=== PATIENT | female | born 1940 | race African-American/Black ===

== ENCOUNTER 2021-02-05 07:49 | Inpatient (IN) | payer MEDICARE, OTHER ==
[~2021-02-05] VITALS: Ht 157.5 cm; Wt 44.9 kg
[~2021-02-05 07:49] MED LIST: ALBU6.7H9 ORI; CARV3.1242 PO; FURO-151 MT; POTA20TA82 MT; SACU1TAB PO
[2021-02-05 08:33] LABS: BASOPHILS % 0.5 % (0.0-2.0); EOSINOPHILS % 3.3 % (0.0-5.0); HEMATOCRIT. 29.4 % (36.0-48.0); HEMOGLOBIN. 10.1 g/dL (12.0-16.0); LYMPHOCYTES % 23.9 % (20.0-50.0); MEAN CORPUSCULAR HEMOGLOBIN 35.5 pg (28.0-32.0); MEAN CORPUSCULAR VOLUME 103.2 fL (81.0-99.0); MEAN PLATELET VOLUME 9.3 fl (7.4-10.4); MONOCYTES % 7.7 % (2.0-8.0); NEUTROPHILS % 64.6 % (40.0-76.0); PLATELET 162 x1000/uL (130-400); RED BLOOD CELL COUNT 2.85 mill/uL (4.2-5.4); RED CELL DISTRIBUTION WIDTH 14.8 % (11.6-14.6)
[2021-02-05 08:40] LABS: CHLORIDE 105 mEq/L (98-107)
[2021-02-05] MEDS ORDERED: ONDANSETRON HCL 4MG/2ML INJ IV PRN (10:45)
[2021-02-05] MEDS ORDERED: ACETAMINOPHEN 325MG TABLET PO PRN (10:45)
[2021-02-05] MEDS ORDERED: CARVEDILOL 6.25 MG TABLET PO NR (10:45)
[2021-02-05] MEDS: FUROSEMIDE 40MG/4ML VIAL IVP SCH ×2 (11:34→17:06)
[2021-02-05 15:51] VITALS: BP 114/49
[2021-02-05 16:00] VITALS: BP 114/68
[2021-02-05 20:00] VITALS: BP 122/77
[2021-02-06] VITALS (7 sets, daily range): BP systolic 102–152; BP diastolic 45–93
[2021-02-06] MEDS: FUROSEMIDE 40MG/4ML VIAL IVP SCH ×2 (06:59→16:42)
[2021-02-06 07:00] LABS: EOSINOPHILS % 4.1 % (0.0-5.0); HEMATOCRIT. 30.6 % (36.0-48.0); HEMOGLOBIN. 10.2 g/dL (12.0-16.0); LYMPHOCYTES % 30.2 % (20.0-50.0); MEAN CORPUSCULAR HEMOGLOBIN 35.4 pg (28.0-32.0); MEAN CORPUSCULAR VOLUME 106.3 fL (81.0-99.0); MONOCYTES % 9.6 % (2.0-8.0); NEUTROPHILS % 55.1 % (40.0-76.0); PLATELET 156 x1000/uL (130-400); RED BLOOD CELL COUNT 2.88 mill/uL (4.2-5.4); RED CELL DISTRIBUTION WIDTH 15.3 % (11.6-14.6)
[2021-02-06] MEDS ORDERED: FURO-151 MT (16:03)
[2021-02-06] MEDS ORDERED: POTA20TA82 MT (16:03)
[2021-02-06] MEDS ORDERED: CARV6.2548 MT (16:03)
[2021-02-06] MEDS ORDERED: CARVEDILOL 6.25 MG TABLET PO SCH (21:00)
== END 2021-02-06 19:23 | disposition home or self-care (01) | DRG 291 ==
LOC: ER 07:49 → 8WST 10:23 → ENRESERV 12:30
PROVIDERS: ADMIT Internal Medicine; ATTEND Internal Medicine
DX: I13.0 Hypertensive heart and chronic kidney disease with heart failure and stage 1 through stage 4 chronic kidney disease, or unspecified chronic kidney disease (principal); I50.23 Acute on chronic systolic (congestive) heart failure; E46 Unspecified protein-calorie malnutrition; Z68.1 Body mass index [BMI] 19.9 or less, adult; D64.9 Anemia, unspecified; E11.22 Type 2 diabetes mellitus with diabetic chronic kidney disease; F17.210 Nicotine dependence, cigarettes, uncomplicated; I27.20 Pulmonary hypertension, unspecified; I42.9 Cardiomyopathy, unspecified; J44.9 Chronic obstructive pulmonary disease, unspecified; N18.2 Chronic kidney disease, stage 2 (mild); E66.01 Morbid (severe) obesity due to excess calories; Z79.899 Other long term (current) drug therapy
CPT/HCPCS: 36415; 71045; 80048; 80053; 83880; 84484; 85025; 93005; 93306; 97162; 99285; J1940

== ENCOUNTER 2021-03-18 04:47 | Inpatient (IN) | payer MEDICARE ==
[~2021-03-18] VITALS: Ht 162.6 cm; Wt 59.9 kg
[~2021-03-18 04:47] MED LIST changes: +CARV6.2548 MT
[2021-03-18 06:09] LABS: CHLORIDE 109 mEq/L (98-107)
[2021-03-18 06:13] LABS: BASOPHILS % 0.5 % (0.0-2.0); EOSINOPHILS % 7.6 % (0.0-5.0); HEMATOCRIT. 28.3 % (36.0-48.0); HEMOGLOBIN. 9.5 g/dL (12.0-16.0); LYMPHOCYTES % 22.1 % (20.0-50.0); MEAN CORPUSCULAR HEMOGLOBIN 35.5 pg (28.0-32.0); MEAN CORPUSCULAR VOLUME 105.6 fL (81.0-99.0); MEAN PLATELET VOLUME 10.4 fl (7.4-10.4); MONOCYTES % 4.7 % (2.0-8.0); NEUTROPHILS % 65.1 % (40.0-76.0); PLATELET 140 x1000/uL (130-400); RED BLOOD CELL COUNT 2.68 mill/uL (4.2-5.4); RED CELL DISTRIBUTION WIDTH 14.1 % (11.6-14.6)
[2021-03-18] MEDS ORDERED: FUROSEMIDE 40MG/4ML VIAL IVP ONE (06:45)
[2021-03-18] MEDS ORDERED: ENALAPRIL 2.5MG/2ML VIAL 2ML IV ONE (07:00)
[2021-03-18] MEDS ORDERED: ENALAPRIL 1.25MG/ML VIAL 1ML IV ONE (07:15)
[2021-03-18] MEDS ORDERED: DOCUSATE SODIUM 100MG CAPSULE PO PRN (07:15)
[2021-03-18] MEDS ORDERED: ONDANSETRON HCL 4MG/2ML INJ IV PRN (07:15)
[2021-03-18] MEDS ORDERED: MAGNESIUM/ALUMINUM HYDROXIDE/SIMETHICONE 30ML UDC PO PRN (07:15)
[2021-03-18] MEDS ORDERED: ENOXAPARIN 40MG/0.4ML SYR SUBCUT SCH (07:15)
[2021-03-18] MEDS ORDERED: GUAIFENESIN 200MG/10ML SUGAR FREE UDC PO PRN (07:15)
[2021-03-18] MEDS ORDERED: CLONIDINE 0.1MG TABLET PO PRN (07:15)
[2021-03-18] MEDS ORDERED: HYDROCODONE/ACETAMINOPHEN 5/325MG TABLET PO PRN (07:15)
[2021-03-18] MEDS ORDERED: ACETAMINOPHEN 325MG TABLET PO PRN (07:15)
[2021-03-18] MEDS: FUROSEMIDE 40MG/4ML VIAL IV SCH (07:30)
[2021-03-18] MEDS: ASPIRIN 81MG EC TABLET PO SCH (08:32)
[2021-03-18] MEDS: ENOXAPARIN 30MG/0.3ML SYR SUBCUT SCH (08:32)
[2021-03-18 10:30] VITALS: BP 127/65
[2021-03-18 12:00] VITALS: BP 128/60
[2021-03-18 16:00] VITALS: BP 102/52
[2021-03-18] MEDS ORDERED: ATOR20TA65 PO (16:29)
[2021-03-18] MEDS ORDERED: DEXTROSE 50% WATER 50ML SYRINGE IV PRN (18:15)
[2021-03-18 20:00] VITALS: BP 124/78
[2021-03-18 20:09] LABS: CREATINE KINASE 67 IU/L (26-192)
[2021-03-18] MEDS: BLOOD SUGAR DIAGNOSTIC STRIP TEST SCH (20:44)
[2021-03-18] MEDS: INSULIN LISPRO 100 UNITS/ML SUBCUT SCH (20:44)
[2021-03-18] MEDS: CARVEDILOL 6.25 MG TABLET PO SCH (20:46)
[2021-03-18] MEDS: ZOLPIDEM TARTRATE 5MG TABLET PO PRN (21:11)
[2021-03-19] VITALS: BP 106/53
[2021-03-19 00:14] LABS: CREATINE KINASE 68 IU/L (26-192)
[2021-03-19 04:00] VITALS: BP 112/61
[2021-03-19] MEDS: BLOOD SUGAR DIAGNOSTIC STRIP TEST SCH ×4 (07:10→21:00)
[2021-03-19 07:14] LABS: BASOPHILS % 0.7 % (0.0-2.0); EOSINOPHILS % 8.6 % (0.0-5.0); HEMATOCRIT. 26.6 % (36.0-48.0); LYMPHOCYTES % 23.4 % (20.0-50.0); MEAN CORPUSCULAR HEMOGLOBIN 35.7 pg (28.0-32.0); MEAN CORPUSCULAR VOLUME 105.6 fL (81.0-99.0); MEAN PLATELET VOLUME 10.6 fl (7.4-10.4); MONOCYTES % 7.7 % (2.0-8.0); NEUTROPHILS % 59.6 % (40.0-76.0); PLATELET 128 x1000/uL (130-400); RED BLOOD CELL COUNT 2.52 mill/uL (4.2-5.4); RED CELL DISTRIBUTION WIDTH 13.9 % (11.6-14.6)
[2021-03-19 07:20] LABS: CHLORIDE 113 mEq/L (98-107)
[2021-03-19] MEDS: INSULIN LISPRO 100 UNITS/ML SUBCUT SCH ×4 (07:28→21:00)
[2021-03-19 07:30] LABS: LDL CHOLESTEROL 52 mg/dL (5-100)
[2021-03-19 07:31] LABS: HDL CHOLESTEROL 60 mg/dL (40-59)
[2021-03-19 08:00] VITALS: BP 142/71
[2021-03-19] MEDS: ASPIRIN 81MG EC TABLET PO SCH (09:09)
[2021-03-19] MEDS: FUROSEMIDE 40MG/4ML VIAL IV SCH (09:10)
[2021-03-19] MEDS: CARVEDILOL 6.25 MG TABLET PO SCH ×2 (09:10→21:22)
[2021-03-19] MEDS: ENOXAPARIN 30MG/0.3ML SYR SUBCUT SCH (09:11)
[2021-03-19 12:00] VITALS: BP 127/60
[2021-03-19] MEDS ORDERED: NALOXONE HCL 0.4MG/ML VIAL IV PRN (15:00)
[2021-03-19 16:00] VITALS: BP 131/62
[2021-03-19 20:00] VITALS: BP 115/61
[2021-03-19] MEDS: ZOLPIDEM TARTRATE 5MG TABLET PO PRN (21:22)
[2021-03-20] VITALS: BP 115/56
[2021-03-20 04:00] VITALS: BP 128/71
[2021-03-20] MEDS: BLOOD SUGAR DIAGNOSTIC STRIP TEST SCH (07:10)
[2021-03-20] MEDS: INSULIN LISPRO 100 UNITS/ML SUBCUT SCH (07:40)
[2021-03-20 08:00] VITALS: BP 134/60
[2021-03-20] MEDS: ENOXAPARIN 30MG/0.3ML SYR SUBCUT SCH (09:32)
[2021-03-20] MEDS: CARVEDILOL 6.25 MG TABLET PO SCH (09:33)
[2021-03-20] MEDS: FUROSEMIDE 40MG/4ML VIAL IV SCH (09:33)
[2021-03-20] MEDS: ASPIRIN 81MG EC TABLET PO SCH (09:34)
[2021-03-20 10:55] VITALS: BP 134/60
== END 2021-03-20 11:30 | disposition home health service (06) | DRG 291 ==
LOC: ER 05:09 → 8WST 06:45 → ENRESERV 07:34
PROVIDERS: ADMIT Hospitalist; ATTEND Hospitalist
DX: I13.0 Hypertensive heart and chronic kidney disease with heart failure and stage 1 through stage 4 chronic kidney disease, or unspecified chronic kidney disease (principal); I50.23 Acute on chronic systolic (congestive) heart failure; D63.8 Anemia in other chronic diseases classified elsewhere; E11.22 Type 2 diabetes mellitus with diabetic chronic kidney disease; J44.9 Chronic obstructive pulmonary disease, unspecified; N18.9 Chronic kidney disease, unspecified; Z20.822 Contact with and (suspected) exposure to COVID-19; Z79.899 Other long term (current) drug therapy; R53.1 Weakness
CPT/HCPCS: 36415; 71045; 80053; 80061; 82550; 82962; 83036; 83880; 84484; 85025; 87426; 87804; 93005; 93306; 93970; 99285; J1650; J1940; J3490

== ENCOUNTER 2022-08-22 23:10 | Emergency (ER) | payer MEDICARE ==
[~2022-08-22] VITALS: Ht 157.5 cm; Wt 50.0 kg
[~2022-08-22 23:10] MED LIST changes: +ALBU6.7H3 ORI; -ALBU6.7H9 ORI; +ATOR20TA65 PO; -CARV3.1242 PO; +POTA-205 MT; -POTA20TA82 MT
[2022-08-23 01:07] LABS: BASOPHILS % 0.2 % (0.0-2.0); HEMATOCRIT. 28.6 % (36.0-48.0); HEMOGLOBIN. 9.7 g/dL (12.0-16.0); LYMPHOCYTES % 12.8 % (20.0-50.0); MEAN CORPUSCULAR HEMOGLOBIN 34.8 pg (28.0-32.0); MEAN CORPUSCULAR VOLUME 102.7 fL (81.0-99.0); MEAN PLATELET VOLUME 10.3 fl (7.4-10.4); MONOCYTES % 5.1 % (2.0-8.0); NEUTROPHILS % 81.9 % (40.0-76.0); PLATELET 114 x1000/uL (130-400); RED BLOOD CELL COUNT 2.78 mill/uL (4.2-5.4); RED CELL DISTRIBUTION WIDTH 13.8 % (11.6-14.6)
[2022-08-23 01:13] LABS: CHLORIDE 106 mEq/L (98-107)
[2022-08-23 01:17] LABS: INR 1.2; PROTHROMBIN TIME 12.4 sec (9.6-11.0)
[2022-08-23] MEDS ORDERED: FUROSEMIDE 20MG/2ML VIAL IVP ONE (01:45)
[2022-08-23] MEDS ORDERED: ASPIRIN 81MG TABLET PO ONE (01:45)
[2022-08-23] MEDS ORDERED: IPRATROPIUM/ALBUTEROL 0.5-3(2.5)MG/3ML NEB HHN PRN (05:00)
[2022-08-23] MEDS ORDERED: ONDANSETRON HCL 4MG/2ML INJ IV PRN (05:00)
[2022-08-23] MEDS ORDERED: ACETAMINOPHEN 325MG TABLET PO PRN ×2 (05:00)
[2022-08-23 05:38] LABS: BASOPHILS % 0.5 % (0.0-2.0); CHLORIDE 107 mEq/L (98-107); EOSINOPHILS % 0.1 % (0.0-5.0); HEMATOCRIT. 27.1 % (36.0-48.0); HEMOGLOBIN. 9.2 g/dL (12.0-16.0); LYMPHOCYTES % 19.6 % (20.0-50.0); MEAN CORPUSCULAR HEMOGLOBIN 34.9 pg (28.0-32.0); MEAN CORPUSCULAR VOLUME 103.1 fL (81.0-99.0); MEAN PLATELET VOLUME 10.3 fl (7.4-10.4); NEUTROPHILS % 72.8 % (40.0-76.0); PLATELET 122 x1000/uL (130-400); RED BLOOD CELL COUNT 2.63 mill/uL (4.2-5.4); RED CELL DISTRIBUTION WIDTH 13.5 % (11.6-14.6)
[2022-08-23] MEDS ORDERED: ASPIRIN 81MG TABLET PO NR (05:45)
[2022-08-23 06:00] LABS: PHOSPHORUS 2.9 mg/dL (2.5-4.9); T4 FREE 1.06 ng/dL (0.76-1.46)
[2022-08-23 06:16] LABS: VITAMIN B12 SERUM 1961 pg/mL (211-911)
[2022-08-23 06:26] LABS: FOLIC ACID (FOLATE) SERUM > 20.00 ng/mL (>5.38)
[2022-08-23 08:44] LABS: CLARITY URINE CLEAR (CLEAR); COLOR URINE YELLOW (YELLOW)
[2022-08-23 08:45] LABS: KETONES URINE NEGATIVE (NEGATIVE); LEUKOCYTE ESTERASE URINE NEGATIVE (NEGATIVE); NITRITE URINE NEGATIVE (NEGATIVE); OCCULT BLOOD URINE NEGATIVE (NEGATIVE); PH URINE 6.5 (4.5-8.0); PROTEIN URINE NEGATIVE (NEGATIVE); SPECIFIC GRAVITY URINE 1.005 (1.005-1.030); UROBILINOGEN URINE 0.2 E.U./dL (0.2-1.0)
[2022-08-23] MEDS ORDERED: FUROSEMIDE 40MG/4ML VIAL IV SCH (09:00)
[2022-08-23] MEDS ORDERED: ASPIRIN 81MG TABLET PO SCH (09:00)
[2022-08-23 12:45] VITALS: BP 148/91
[2022-08-23 13:00] LABS: CREATINE KINASE MB FRACTION 1.7 ng/mL (0.5-3.6)
[2022-08-23] MEDS ORDERED: CLONIDINE 0.1MG TABLET PO SCH (14:00)
[2022-08-23] MEDS ORDERED: FAMOTIDINE 20MG TABLET PO SCH (21:00)
[2022-08-24] MEDS ORDERED: AMLODIPINE 5MG TABLET PO SCH (09:00)
[2022-08-24 13:33] LABS: *AMPHETAMINES SCREEN URINE NEGATIVE (NEGATIVE); *BARBITURATES SCREEN URINE NEGATIVE (NEGATIVE); *BENZODIAZEPINES SCREEN URINE NEGATIVE (NEGATIVE); *COCAINE SCREEN URINE NEGATIVE (NEGATIVE); CANNABINOID URINE SCREEN NEGATIVE (NEGATIVE); METHADONE URINE SCREEN NEGATIVE (NEGATIVE); OPIATES URINE SCREEN NEGATIVE (NEGATIVE); PHENCYCLIDINE URINE SCREEN NEGATIVE (NEGATIVE)
== END 2022-08-23 13:31 | disposition left against medical advice (07) ==
LOC: ER 23:10 → EDBEDREQ 08-23 04:54 → EDBEDREQTM 08-23 04:54 → ER 08-23 13:31 → CANBEDREQ 08-23 22:59
DX: R77.8 Other specified abnormalities of plasma proteins (principal); I11.0 Hypertensive heart disease with heart failure; I50.9 Heart failure, unspecified; F03.90 Unspecified dementia, unspecified severity, without behavioral disturbance, psychotic disturbance, mood disturbance, and anxiety; E11.9 Type 2 diabetes mellitus without complications; Z79.899 Other long term (current) drug therapy; Z20.822 Contact with and (suspected) exposure to COVID-19
CPT/HCPCS: 36415; 70450; 71045; 80053; 80061; 80305; 81003; 82550; 82553; 82607; 82746; 83036; 83605; 83735; 83880; 84100; 84145; 84439; 84443; 84484; 85025; 85379; 85610; 87040; 87426; 93005; 93970; 96374; 96376; 99285; C9803; J1940

== ENCOUNTER 2023-02-16 22:50 | Inpatient (IN) | payer MEDICARE ==
[~2023-02-16] VITALS: Ht 160 cm; Wt 57.0 kg
[~2023-02-16 22:50] MED LIST changes: +ASPI-1406 PO; +ATOR40TA70 PO; +CARV25TA47 PO; +CLOP75TA33 PO; +DONE5TAB33 PO; +FLUT12AE3 IH; +FURO20TA4 PO; +OLAN2.5T29 PO
[2023-02-16] MEDS ORDERED: DEXTROSE 50% WATER 50ML SYRINGE IV PRN (23:15)
[2023-02-16] MEDS ORDERED: MAGNESIUM HYDROXIDE 400MG/5ML 30ML UDC PO PRN (23:15)
[2023-02-16 23:30] VITALS: BP 133/61; PULSE 83; RESP 17; TEMP 98.7
[2023-02-17 07:03] LABS: BASOPHILS % 0.5 % (0.0-2.0); DIFFERENTIAL COMMENT 0; EOSINOPHILS % 1.9 % (0.0-5.0); HEMATOCRIT. 26.5 % (36.0-48.0); LYMPHOCYTES % 21.2 % (20.0-50.0); MEAN CORPUSCULAR HEMOGLOBIN 35.5 pg (28.0-32.0); MEAN CORPUSCULAR VOLUME 104.5 fL (81.0-99.0); MEAN PLATELET VOLUME 11.2 fl (7.4-10.4); MONOCYTES % 9.9 % (2.0-8.0); NEUTROPHILS % 66.5 % (40.0-76.0); PLATELET 111 x1000/uL (130-400); RED BLOOD CELL COUNT 2.54 mill/uL (4.2-5.4); RED CELL DISTRIBUTION WIDTH 13.6 % (11.6-14.6); WHITE BLOOD COUNT 5.5 x1000/uL (4.5-11.0)
[2023-02-17 07:28] LABS: CHLORIDE 110 mEq/L (98-107); INDEX HEMOLYSI 3 (1-3); INDEX ICTERIC 1 (1-4); INDEX LIPEMIC 1 (1-3); POTASSIUM 4.5 mEq/L (3.5-5.1); SODIUM 139 mEq/L (136-145)
[2023-02-17 07:37] LABS: ALANINE AMINOTRANSFERASE 44 IU/L (13-61); ALBUMIN 2.5 g/dL (3.4-5.0); ASPARTATE AMINOTRANSFERASE 40 IU/L (15-37); BILIRUBIN TOTAL 0.5 mg/dL (0.1-1.0); CALCIUM 9.3 mg/dL (8.5-10.1); CARBON DIOXIDE 26 mEq/L (21-32); GLUCOSE 104 mg/dL (70-105); PREALBUMIN 12.6 mg/dL (20.0-40.0); UREA NITROGEN BLOOD 29 mg/dL (7-21)
[2023-02-17 08:00] VITALS: BP 133/54; PULSE 87; RESP 18; TEMP 96
[2023-02-17] MEDS: POLYETHYLENE GLYCOL 3350 (17GM) 1 DOSE PACK PO SCH (09:58)
[2023-02-17] MEDS: PANTOPRAZOLE SODIUM 40 MG/VIAL IV SCH ×2 (09:58→16:50)
[2023-02-17] MEDS ORDERED: IPRATROPIUM/ALBUTEROL 0.5-3(2.5)MG/3ML NEB HHN PRN (12:30)
[2023-02-17] MEDS ORDERED: ACETAMINOPHEN 325MG TABLET PO PRN (15:30)
[2023-02-17 20:00] VITALS: BP 145/53; PULSE 83; RESP 16; TEMP 97.6
[2023-02-17] MEDS: ATORVASTATIN CALCIUM 20MG TABLET PO SCH (21:50)
[2023-02-18 08:00] VITALS: BP 144/66; PULSE 87; RESP 17; TEMP 94.7
[2023-02-18] MEDS: POLYETHYLENE GLYCOL 3350 (17GM) 1 DOSE PACK PO SCH (09:11)
[2023-02-18] MEDS: PANTOPRAZOLE SODIUM 40 MG/VIAL IV SCH ×2 (09:45→17:00)
[2023-02-18] MEDS ORDERED: ENOXAPARIN 30MG/0.3ML SYR SUBCUT SCH (13:00)
[2023-02-18 20:00] VITALS: BP 123/51; PULSE 84; RESP 16; TEMP 96.2
[2023-02-18] MEDS: ENOXAPARIN 30MG/0.3ML SYR SUBCUT SCH (21:43)
[2023-02-18] MEDS: ATORVASTATIN CALCIUM 20MG TABLET PO SCH (21:43)
[2023-02-19 08:00] VITALS: BP 137/57; PULSE 87; RESP 20; TEMP 96.9
[2023-02-19] MEDS: PANTOPRAZOLE SODIUM 40 MG/VIAL IV SCH (09:07)
[2023-02-19] MEDS: POLYETHYLENE GLYCOL 3350 (17GM) 1 DOSE PACK PO SCH (09:07)
[2023-02-19 20:00] VITALS: BP 135/57; PULSE 81; RESP 16; TEMP 97.6
[2023-02-19] MEDS: ATORVASTATIN CALCIUM 20MG TABLET PO SCH (20:55)
[2023-02-19] MEDS: ENOXAPARIN 30MG/0.3ML SYR SUBCUT SCH (20:56)
[2023-02-20] MEDS: LACTULOSE 20G/30ML UDC PO SCH ×3 (06:29→21:26)
[2023-02-20 08:00] VITALS: BP 134/50; PULSE 79; RESP 16; TEMP 97.9
[2023-02-20] MEDS: PANTOPRAZOLE SODIUM 40 MG/VIAL IV SCH ×2 (11:30→11:32)
[2023-02-20] MEDS: POLYETHYLENE GLYCOL 3350 (17GM) 1 DOSE PACK PO SCH (11:30)
[2023-02-20] MEDS ORDERED: PANTOPRAZOLE 40MG DR TABLET PO NR (15:30)
[2023-02-20 20:00] VITALS: BP_SYST 112; BP_SYST 119; BP_DIAS 42; BP_DIAS 73; PULSE 78; PULSE 82; RESP 17; RESP 18; TEMP 97.4; TEMP 97.9
[2023-02-20] MEDS: ATORVASTATIN CALCIUM 20MG TABLET PO SCH (21:26)
[2023-02-20] MEDS: ENOXAPARIN 30MG/0.3ML SYR SUBCUT SCH (21:27)
[2023-02-21] MEDS: LACTULOSE 20G/30ML UDC PO SCH ×3 (06:00→22:00)
[2023-02-21 08:00] VITALS: BP 134/56; PULSE 85; RESP 18; TEMP 97.1
[2023-02-21] MEDS: POLYETHYLENE GLYCOL 3350 (17GM) 1 DOSE PACK PO SCH (08:21)
[2023-02-21] MEDS: PANTOPRAZOLE 40MG DR TABLET PO SCH (08:22)
[2023-02-21 20:00] VITALS: BP 122/80; PULSE 88; RESP 18; TEMP 97.9
[2023-02-21] MEDS: ENOXAPARIN 30MG/0.3ML SYR SUBCUT SCH (23:03)
[2023-02-21] MEDS: ATORVASTATIN CALCIUM 20MG TABLET PO SCH (23:03)
[2023-02-22] MEDS: LACTULOSE 20G/30ML UDC PO SCH ×3 (06:13→22:48)
[2023-02-22 08:00] VITALS: BP 116/52; PULSE 91; RESP 18; TEMP 96.3
[2023-02-22] MEDS: PANTOPRAZOLE 40MG DR TABLET PO SCH (08:03)
[2023-02-22] MEDS: POLYETHYLENE GLYCOL 3350 (17GM) 1 DOSE PACK PO SCH (08:03)
[2023-02-22 20:00] VITALS: BP 120/60; PULSE 88; RESP 18; TEMP 97
[2023-02-22] MEDS: ENOXAPARIN 30MG/0.3ML SYR SUBCUT SCH (22:48)
[2023-02-22] MEDS: ATORVASTATIN CALCIUM 20MG TABLET PO SCH (22:48)
[2023-02-23] MEDS: LACTULOSE 20G/30ML UDC PO SCH ×3 (06:00→21:43)
[2023-02-23 08:00] VITALS: BP 120/55; PULSE 77; RESP 18; TEMP 96.6
[2023-02-23] MEDS: POLYETHYLENE GLYCOL 3350 (17GM) 1 DOSE PACK PO SCH (09:19)
[2023-02-23] MEDS: PANTOPRAZOLE 40MG DR TABLET PO SCH (09:19)
[2023-02-23 20:00] VITALS: BP 117/54; PULSE 61; RESP 17; TEMP 98.6
[2023-02-23] MEDS: ENOXAPARIN 30MG/0.3ML SYR SUBCUT SCH (21:43)
[2023-02-23] MEDS: ATORVASTATIN CALCIUM 20MG TABLET PO SCH (21:43)
[2023-02-24] MEDS: LACTULOSE 20G/30ML UDC PO SCH ×3 (05:40→21:19)
[2023-02-24 08:00] VITALS: BP 123/50; PULSE 90; RESP 18; TEMP 97
[2023-02-24] MEDS: PANTOPRAZOLE 40MG DR TABLET PO SCH (09:30)
[2023-02-24] MEDS: POLYETHYLENE GLYCOL 3350 (17GM) 1 DOSE PACK PO SCH (09:30)
[2023-02-24 20:00] VITALS: BP 110/43; PULSE 79; RESP 17; TEMP 98
[2023-02-24] MEDS: ENOXAPARIN 30MG/0.3ML SYR SUBCUT SCH (20:21)
[2023-02-24] MEDS: ATORVASTATIN CALCIUM 20MG TABLET PO SCH (20:21)
[2023-02-25 08:00] VITALS: BP 121/46; PULSE 81; RESP 18; TEMP 97.1
[2023-02-25] MEDS: POLYETHYLENE GLYCOL 3350 (17GM) 1 DOSE PACK PO SCH (08:52)
[2023-02-25] MEDS: PANTOPRAZOLE 40MG DR TABLET PO SCH (08:53)
[2023-02-25] MEDS: ATORVASTATIN CALCIUM 20MG TABLET PO SCH (20:43)
[2023-02-25] MEDS: ENOXAPARIN 30MG/0.3ML SYR SUBCUT SCH (20:44)
[2023-02-26 08:00] VITALS: BP 123/47; PULSE 84; TEMP 97.5
[2023-02-26] MEDS: PANTOPRAZOLE 40MG DR TABLET PO SCH (08:35)
[2023-02-26] MEDS: POLYETHYLENE GLYCOL 3350 (17GM) 1 DOSE PACK PO SCH (08:35)
[2023-02-26 20:00] VITALS: BP 105/63; PULSE 85; RESP 20; TEMP 96.8
[2023-02-26] MEDS: ATORVASTATIN CALCIUM 20MG TABLET PO SCH (21:45)
[2023-02-26] MEDS: ENOXAPARIN 30MG/0.3ML SYR SUBCUT SCH (21:46)
[2023-02-27 08:00] VITALS: BP 137/63; PULSE 90; RESP 15; TEMP 95.7
[2023-02-27] MEDS: POLYETHYLENE GLYCOL 3350 (17GM) 1 DOSE PACK PO SCH (09:24)
[2023-02-27] MEDS: PANTOPRAZOLE 40MG DR TABLET PO SCH (09:24)
[2023-02-27 20:00] VITALS: BP 124/60; PULSE 78; RESP 20; TEMP 97.7
[2023-02-27] MEDS: ENOXAPARIN 30MG/0.3ML SYR SUBCUT SCH (21:00)
[2023-02-27] MEDS: ATORVASTATIN CALCIUM 20MG TABLET PO SCH (21:55)
[2023-02-28 08:00] VITALS: BP 129/60; PULSE 96; RESP 18; TEMP 96.9
[2023-02-28] MEDS: POLYETHYLENE GLYCOL 3350 (17GM) 1 DOSE PACK PO SCH (08:42)
[2023-02-28] MEDS: PANTOPRAZOLE 40MG DR TABLET PO SCH (08:42)
[2023-02-28 20:00] VITALS: BP 131/53; PULSE 90; RESP 18; TEMP 97.7
[2023-02-28] MEDS: ATORVASTATIN CALCIUM 20MG TABLET PO SCH (21:34)
[2023-02-28] MEDS: ENOXAPARIN 30MG/0.3ML SYR SUBCUT SCH (21:34)
[2023-03-01 07:10] LABS: BASOPHILS % 0.6 % (0.0-2.0); DIFFERENTIAL COMMENT 0; EOSINOPHILS % 0.5 % (0.0-5.0); HEMATOCRIT. 26.3 % (36.0-48.0); HEMOGLOBIN. 8.7 g/dL (12.0-16.0); MEAN CORPUSCULAR HGB CONC 32.9 g/dL (31.0-37.0); MEAN CORPUSCULAR VOLUME 106.2 fL (81.0-99.0); MEAN PLATELET VOLUME 10.3 fl (7.4-10.4); MONOCYTES % 11.3 % (2.0-8.0); NEUTROPHILS % 65.6 % (40.0-76.0); PLATELET 151 x1000/uL (130-400); RED BLOOD CELL COUNT 2.48 mill/uL (4.2-5.4); RED CELL DISTRIBUTION WIDTH 13.7 % (11.6-14.6)
[2023-03-01 07:58] LABS: CHLORIDE 108 mEq/L (98-107); POTASSIUM 4.7 mEq/L (3.5-5.1); SODIUM 138 mEq/L (136-145)
[2023-03-01 08:00] VITALS: BP 130/67; PULSE 102; RESP 17; TEMP 97.7
[2023-03-01 08:03] LABS: CALCIUM 9.7 mg/dL (8.5-10.1); CARBON DIOXIDE 23 mEq/L (21-32); CREATININE 1.1 mg/dL (0.6-1.3); GLUCOSE 102 mg/dL (70-105); UREA NITROGEN BLOOD 15 mg/dL (7-21)
[2023-03-01] MEDS: PANTOPRAZOLE 40MG DR TABLET PO SCH (09:12)
[2023-03-01] MEDS: POLYETHYLENE GLYCOL 3350 (17GM) 1 DOSE PACK PO SCH (09:13)
[2023-03-01 20:00] VITALS: BP 133/78; PULSE 97; RESP 17; TEMP 98.8
[2023-03-01] MEDS: ATORVASTATIN CALCIUM 20MG TABLET PO SCH (21:38)
[2023-03-01] MEDS: ENOXAPARIN 30MG/0.3ML SYR SUBCUT SCH (21:38)
[2023-03-02 07:10] VITALS: BP 146/84; PULSE 111; RESP 50; TEMP 97
[2023-03-02 07:28] VITALS: BP 140/74; PULSE 108; RESP 20; TEMP 97.1
[2023-03-02] MEDS: POLYETHYLENE GLYCOL 3350 (17GM) 1 DOSE PACK PO SCH (09:05)
[2023-03-02] MEDS: PANTOPRAZOLE 40MG DR TABLET PO SCH (09:05)
[2023-03-02 10:46] LABS: BG BASE EXCESS -1.8 mmol/L (-2.0-2.0); BG CARBOXYHEMOGLOBIN 0.3 % (0.5-1.5); BG DEOXYHEMOGLOBIN 4.4 % (0.0-5.0); BG FRACTION INSPIRED OXYGEN 28; BG HCO3 ACT 22.3 mmol/L (22.0-26.0); BG METHEMOGLOBIN 0.2 % (0.0-1.5); BG OXYGEN SATURATION 95.6 % (92.0-98.5); BG OXYHEMOGLOBIN 95.1 % (94.0-97.0); BG PCO2 35.8 mmHg (35.0-45.0); BG PH 7.413 (7.350-7.450); BG PO2 83.5 mmHg (75.0-100.0); BG SAMPLE SITE RIGHT BRACHIAL; BG TOTAL HEMOGLOBIN 10.6 g/dL (12.0-18.0); BG VENT MODE NASAL CANNULA
[2023-03-02 10:48] LABS: BASOPHILS % 0.4 % (0.0-2.0); DIFFERENTIAL COMMENT 0; EOSINOPHILS % 0.3 % (0.0-5.0); HEMATOCRIT. 26.5 % (36.0-48.0); HEMOGLOBIN. 8.6 g/dL (12.0-16.0); MEAN CORPUSCULAR HGB CONC 32.4 g/dL (31.0-37.0); MONOCYTES % 12.5 % (2.0-8.0); NEUTROPHILS % 64.8 % (40.0-76.0); PLATELET 171 x1000/uL (130-400); RED BLOOD CELL COUNT 2.53 mill/uL (4.2-5.4); RED CELL DISTRIBUTION WIDTH 13.6 % (11.6-14.6); WHITE BLOOD COUNT 3.9 x1000/uL (4.5-11.0)
[2023-03-02 10:53] LABS: CHLORIDE 105 mEq/L (98-107); INDEX HEMOLYSI 1 (1-3); INDEX ICTERIC 1 (1-4); INDEX LIPEMIC 1 (1-3); POTASSIUM 4.8 mEq/L (3.5-5.1); SODIUM 136 mEq/L (136-145)
[2023-03-02 11:00] LABS: ALANINE AMINOTRANSFERASE 17 IU/L (13-61); ALBUMIN 3.1 g/dL (3.4-5.0); ASPARTATE AMINOTRANSFERASE 13 IU/L (15-37); BILIRUBIN TOTAL 0.6 mg/dL (0.1-1.0); CALCIUM 10.3 mg/dL (8.5-10.1); CARBON DIOXIDE 26 mEq/L (21-32); CREATININE 1.3 mg/dL (0.6-1.3); GLUCOSE 122 mg/dL (70-105); PROTEIN TOTAL 7.1 g/dL (6.0-8.3); UREA NITROGEN BLOOD 21 mg/dL (7-21)
[2023-03-02] MEDS ORDERED: IPRATROPIUM/ALBUTEROL 0.5-3(2.5)MG/3ML NEB HHN PRN (13:00)
[2023-03-02] MEDS ORDERED: FUROSEMIDE 40MG/4ML VIAL IVP NR ×2 (14:15→16:45)
[2023-03-02 14:40] VITALS: PULSE 96; RESP 36
[2023-03-02] MEDS: IPRATROPIUM BROMIDE (0.02%) 0.5MG/2.5ML NEB HHN PRN ×2 (14:40→20:18)
[2023-03-02] MEDS ORDERED: FUROSEMIDE 40MG TABLET PO NR (16:00)
[2023-03-02] MEDS ORDERED: IPRATROPIUM/ALBUTEROL 0.5-3(2.5)MG/3ML NEB HHN SCH (18:00)
[2023-03-02 20:00] VITALS: BP 120/71; PULSE 94; RESP 20; TEMP 99.7
[2023-03-02 20:18] VITALS: PULSE 85; RESP 22; O2SAT 99
[2023-03-02] MEDS: ATORVASTATIN CALCIUM 20MG TABLET PO SCH (21:33)
[2023-03-02] MEDS: ENOXAPARIN 30MG/0.3ML SYR SUBCUT SCH (21:35)
[2023-03-03 08:00] VITALS: BP 114/52; PULSE 101; RESP 17; TEMP 95.9
[2023-03-03] MEDS: POLYETHYLENE GLYCOL 3350 (17GM) 1 DOSE PACK PO SCH (08:28)
[2023-03-03] MEDS: PANTOPRAZOLE 40MG DR TABLET PO SCH (08:28)
[2023-03-03] MEDS: FUROSEMIDE 40MG/4ML VIAL IVP SCH (12:15)
[2023-03-03] MEDS: FERROUS SULFATE 325MG TABLET PO SCH (13:31)
[2023-03-03 13:35] LABS: CALCIUM 9.6 mg/dL (8.5-10.1); POTASSIUM 4.5 mEq/L (3.5-5.1)
[2023-03-03 13:41] LABS: CREATININE 1.3 mg/dL (0.6-1.3)
[2023-03-03 20:00] VITALS: BP 104/48; PULSE 81; RESP 19; TEMP 97.5
[2023-03-03 21:17] VITALS: PULSE 87; RESP 20; O2SAT 99
[2023-03-03] MEDS: IPRATROPIUM/ALBUTEROL 0.5-3(2.5)MG/3ML NEB HHN SCH ×2 (21:17→23:54)
[2023-03-03] MEDS: ATORVASTATIN CALCIUM 20MG TABLET PO SCH (21:28)
[2023-03-03] MEDS: ENOXAPARIN 30MG/0.3ML SYR SUBCUT SCH (21:28)
[2023-03-03] MEDS: ACETYLCYSTEINE 200MG/ML 20% VIAL 4ML INH SCH (23:54)
[2023-03-03 23:55] VITALS: PULSE 85; RESP 18
[2023-03-04 04:39] VITALS: PULSE 81; RESP 18
[2023-03-04] MEDS: IPRATROPIUM/ALBUTEROL 0.5-3(2.5)MG/3ML NEB HHN SCH ×3 (04:39→11:54)
[2023-03-04] MEDS: ACETYLCYSTEINE 200MG/ML 20% VIAL 4ML INH SCH (07:42)
[2023-03-04 07:45] VITALS: PULSE 76; RESP 16
[2023-03-04 08:00] VITALS: BP 115/51; PULSE 73; RESP 18; TEMP 96.7
[2023-03-04] MEDS ORDERED: IOHEXOL-350 100 ML BOTTLE ONE (08:55)
[2023-03-04] MEDS: FUROSEMIDE 40MG/4ML VIAL IVP SCH (09:00)
[2023-03-04] MEDS: POLYETHYLENE GLYCOL 3350 (17GM) 1 DOSE PACK PO SCH (09:49)
[2023-03-04] MEDS: FERROUS SULFATE 325MG TABLET PO SCH (09:49)
[2023-03-04] MEDS: PANTOPRAZOLE 40MG DR TABLET PO SCH (09:49)
[2023-03-04] MEDS ORDERED: CARVEDILOL 3.125 MG TABLET PO SCH (10:00)
[2023-03-04] MEDS ORDERED: FUROSEMIDE 40MG TABLET PO SCH (10:30)
[2023-03-04] MEDS ORDERED: ATOR20TA PO (10:37)
[2023-03-04] MEDS ORDERED: FERR-63 PO (10:37)
[2023-03-04] MEDS ORDERED: COR3 PO (10:37)
[2023-03-04] MEDS ORDERED: FURO40TA5 PO (10:38)
[2023-03-04] MEDS ORDERED: INFLUENZA VACCINE 05/PF 0.5 ML SYRINGE IM ONE (11:00)
[2023-03-04 11:54] VITALS: PULSE 88; RESP 16
[2023-03-04 13:17] VITALS: BP 106/44; PULSE 92; TEMP 97.4; O2SAT 100
== END 2023-03-04 14:05 | disposition hospice, home (50) | DRG 70 ==
PROVIDERS: ADMIT Psychiatry & Neurology Neurology; ATTEND Internal Medicine
DX: G93.49 Other encephalopathy (principal); A41.9 Sepsis, unspecified organism; I21.4 Non-ST elevation (NSTEMI) myocardial infarction; I50.33 Acute on chronic diastolic (congestive) heart failure; J18.9 Pneumonia, unspecified organism; J96.01 Acute respiratory failure with hypoxia; J96.02 Acute respiratory failure with hypercapnia; J93.9 Pneumothorax, unspecified; E87.29 Other acidosis; I13.0 Hypertensive heart and chronic kidney disease with heart failure and stage 1 through stage 4 chronic kidney disease, or unspecified chronic kidney disease; F03.93 Unspecified dementia, unspecified severity, with mood disturbance; I31.39 Other pericardial effusion (noninflammatory); N18.32 Chronic kidney disease, stage 3b; I27.20 Pulmonary hypertension, unspecified; D53.9 Nutritional anemia, unspecified; E11.22 Type 2 diabetes mellitus with diabetic chronic kidney disease; E78.5 Hyperlipidemia, unspecified; E83.39 Other disorders of phosphorus metabolism; E83.52 Hypercalcemia; E87.5 Hyperkalemia; R32 Unspecified urinary incontinence; R13.10 Dysphagia, unspecified; R53.81 Other malaise; Z95.810 Presence of automatic (implantable) cardiac defibrillator; I25.2 Old myocardial infarction; Z51.5 Encounter for palliative care; Z79.82 Long term (current) use of aspirin; Z79.899 Other long term (current) drug therapy
CPT/HCPCS: 36415; 36600; 71045; 71275; 80048; 80053; 82375; 82805; 84134; 84145; 85025; 85379; 90686; 92523; 92610; 93005; 93970; 93971; 94640; 97110; 97116; 97162; 97166; 97530; 97535; C1893; C9113; J1650; J1940; J7608; Q9967